=== PATIENT | female | born 1965 | race Caucasian/White ===

== ENCOUNTER 2018-06-01 15:23 | Emergency (ER) | payer OTHER ==
[~2018-06-01] VITALS: Ht 160 cm; Wt 82.6 kg
[2018-06-01] MEDS ORDERED: SODIUM CHLORIDE FLUSH 10ML SYR IVF ONE ×2 (16:00→16:30)
[2018-06-01] MEDS ORDERED: SERT25TA3 PO (16:16)
[2018-06-01] MEDS ORDERED: TOPI25TA8 PO (16:16)
--- NOTE | 2018-06-01 16:22 | NUR ---
Patient reports a history of atrial fibrillation with successful ablation, states beginning yesterday she had sensation of "my heart racing" which felt like prior episodes of atrial fibrillation. Patient denies chest pain or shortness of breath. Patient is alert and appropriate in no apparent distress at this time. Continuous blood pressure, SPO2 and cardiac monitoring in place which shows normal sinus rhythm and atrial fibrillation intermittently. Call andrews placed within reach.
[2018-06-01] MEDS ORDERED: DILTIAZEM 5 MG/ML, 5ML IV ONE (16:30)
[2018-06-01] MEDS ORDERED: ASPIRIN 81 MG TABLET CHEW PO ONE (16:30)
[2018-06-01 16:35] LABS: BASOPHILS # (AUTO) 0.03 x10^3/uL (0-0.1); BASOPHILS % (AUTO) 0 % (0-1); EOSINOPHILS # (AUTO) 0.15 x10^3/uL (0-0.4); EOSINOPHILS % (AUTO) 2 % (1-7); LYMPHOCYTES # (AUTO) 2.53 x10^3/uL (1-3.4); LYMPHOCYTES % (AUTO) 34 % (22-44); MD NO; MEAN CORPUSCULAR HEMOGLOBIN 32.3 pg (27.0-34.8); MEAN CORPUSCULAR HGB CONC 34.2 g/dL (32.4-35.8); MEAN CORPUSCULAR VOLUME 94.4 fL (80-100); MEAN PLATELET VOLUME 8.2 fL (7.4-10.4); MONOCYTES # (AUTO) 0.46 x10^3/uL (0.2-0.8); MONOCYTES % (AUTO) 6 % (2-9); NEUTROPHILS # (AUTO) 4.28 x10^3/uL (1.8-6.8); NEUTROPHILS % (AUTO) 57 % (42-75); PLATELET COUNT 253 x10^3/uL (130-400); RED BLOOD COUNT 4.72 x10^6/uL (3.82-5.3); RED CELL DISTRIBUTION WIDTH 14.4 % (9.6-15.2)
[2018-06-01] MEDS ORDERED: ASPIRIN 81 MG TABLET CHEW ONE (16:38)
[2018-06-01] MEDS ORDERED: DILTIAZEM 5 MG/ML, 10ML ONE (16:38)
[2018-06-01 16:45] LABS: ALBUMIN 4.3 g/dL (3.4-5.0); ANION GAP 9 mmol/L (5-15); CALCIUM 9.3 mg/dL (8.5-10.1); CHLORIDE 110 mmol/L (98-107)
[2018-06-01 16:46] LABS: INTERNATIONAL NORMALIZED RATIO 1.05 (0.93-1.1)
--- NOTE | 2018-06-01 16:48 | NUR ---
Cardizem administered as ordered and documented, patient now in sinus rhythm. Call andrews within reach.
[2018-06-01 16:52] LABS: ALANINE AMINOTRANSFERASE 22 U/L (12-78); ALKALINE PHOSPHATASE 84 U/L (45-117); CREATININE 0.93 mg/dL (0.55-1.02); FREE T4 (FREE THYROXINE) 0.98 ng/dL (0.76-1.46); TOTAL PROTEIN 7.5 g/dL (6.4-8.2); TROPONIN I < 0.015 ng/mL (0.000-0.045)
[2018-06-01] MEDS ORDERED: APIXABAN 5 MG TABLET PO ONE (17:30)
[2018-06-01] MEDS ORDERED: APIXABAN 5 MG TABLET ONE (17:33)
[2018-06-01 17:37] VITALS: BP 106/68
--- NOTE | 2018-06-01 17:40 | NUR ---
TASK RN: PT IN NSR, RATE 70'S. DENIES DIZZINESS/WEAKNESS. STATE "I FEEL MUCH BETTER". PT MEDICATED PER EMAR. DC EDUCATION PROVIDED, PT DEMONSTRATES UNDERSTANDING. PT AMBULATED STEADILY TO DC WITH RN AND SO. SO TO TRANSPORT PT HOME.
== END 2018-06-01 17:43 | disposition home or self-care (01) ==
LOC: ED 17:30
DX: I48.0 Paroxysmal atrial fibrillation (principal)
CPT/HCPCS: 36415; 71045; 80053; 83735; 83880; 84439; 84443; 84484; 85025; 85610; 85730; 93005; 96374